=== PATIENT | female | born 1975 | race Caucasian/White ===

== ENCOUNTER → 2016-04-10 | Outpatient (CLI) | payer OTHER ==
[~2016-04-10] MED LIST: CLON0.5T3 PO; CLX20 PO; FLUT0.15 NAE; FRCT/ PO; RMR15 PO
[2016-04-10 17:30] LABS: THYROID STIMULATING HORMONE 2.49 uIu/ml (0.300-4.500)
== END | disposition home or self-care (01) ==
LOC: C.LABBC 12:12
PROVIDERS: ATTEND Family Medicine
DX: R53.83 Other fatigue (principal)

== ENCOUNTER → 2016-04-26 | Outpatient (CLI) | payer OTHER ==
[2016-04-26 17:24] LABS: THYROID STIMULATING HORMONE 1.5 uIu/ml (0.300-4.500)
[2016-04-26 17:25] LABS: TESTOSTERONE,TOTAL 18.3 ng/dl
[2016-04-26 17:26] LABS: PROLACTIN 6.13 ng/mL
[2016-05-02 15:17] LABS: PREGNENELONE **TC 31493X 9 ng/dL; SEX HORMONE BINDING GLOB 228 NMOL/L (17-124); THYROGLOBULIN 14.6 NG/ML (2.8-40.9)
== END | disposition home or self-care (01) ==
LOC: C.LABBC 12:38
PROVIDERS: ATTEND Family Medicine
DX: E28.9 Ovarian dysfunction, unspecified (principal)

== ENCOUNTER → 2016-07-12 | Outpatient (CLI) | payer OTHER ==
--- NOTE | 2016-07-12 12:53 | DIAGNOSTIC IMAGING REPORT ---
HAND MIN 3 VIEWS ROUTINE CLINICAL HISTORY: JUANCHO HAND ARTHRALGIC pain COMPARISON: None. DISCUSSION: Mild periarticular osteopenia. No well-defined marginal erosions. Bony mineralization throughout is somewhat diminished. There is no evidence for soft tissue swelling. IMPRESSION: Possible early rheumatoid change. Electronically signed by: Mark Real M.D. 07/12/2016 12:51 PM Dictated Date/Time: 07/12/2016 12:51 PM
--- NOTE | 2016-07-12 13:30 | DIAGNOSTIC IMAGING REPORT ---
RIGHT HAND 3 VIEWS CLINICAL HISTORY: Bilateral hand arthralgias. FINDINGS: 3 views of the left hand are obtained. No prior studies are available for comparison at the time of dictation. The skeletal structures are well mineralized. Apparent osteopenia is likely on a technical basis. No fracture is seen. The joint spaces of the hand are well-maintained. No erosive disease is identified. The overlying soft tissues are within normal limits. IMPRESSION: Unremarkable radiographic assessment of the left hand. Electronically signed by: John Francis M.D. 07/12/2016 1:28 PM Dictated Date/Time: 07/12/2016 1:27 PM
== END | disposition home or self-care (01) ==
LOC: C.RADBC 12:28
PROVIDERS: ATTEND Physician Assistant
DX: R89.4 Abnormal immunological findings in specimens from other organs, systems and tissues (principal); M25.50 Pain in unspecified joint

== ENCOUNTER → 2016-07-26 | Outpatient (CLI) | payer OTHER | END | disposition home or self-care (01) | LOC: C.LABBC 14:51 | PROVIDERS: ATTEND Physician Assistant | DX: R89.4 Abnormal immunological findings in specimens from other organs, systems and tissues (principal); M25.50 Pain in unspecified joint ==

== ENCOUNTER → 2016-08-25 | Outpatient (CLI) | payer OTHER ==
[2016-08-25 14:43] LABS: URINE APPEARANCE CLEAR (CLEAR); URINE BILIRUBIN NEG (NEG); URINE COLOR YELLOW; URINE NITRITE NEG (NEG); UROBILINOGEN NEG (NEG)
[2016-08-25 14:49] LABS: MANUAL MICROSCOPIC REQUIRED? NO; REVIEW REQ? NO
== END | disposition home or self-care (01) ==
LOC: C.LAB 12:17
PROVIDERS: ATTEND Family Medicine
DX: R30.0 Dysuria (principal)

== ENCOUNTER → 2016-08-31 | Outpatient (CLI) | payer OTHER ==
--- NOTE | 2016-08-31 15:33 | DIAGNOSTIC IMAGING REPORT ---
RENAL ULTRASOUND CLINICAL HISTORY: Flank and back pain. COMPARISON STUDY: CT of the abdomen and pelvis April 25, 2010. TECHNIQUE: Sonography of the kidneys and the urinary bladder was performed. FINDINGS: The right kidney measures 10.3 x 3.1 x 4.1 cm and the left measures 10.4 x 4.1 x 4.7 cm. There is no hydronephrosis. A 6 mm echogenic cortical lesion within the lower pole of the right kidney favors an angiomyolipoma. Renal echogenicity, size and cortical thickness are normal. Both ureteral jets were identified. IMPRESSION: 1. No hydronephrosis. 2. 6 mm echogenic right renal lesion. While indeterminate, the appearance favors an angiomyolipoma. Otherwise, normal sonographic appearance of the kidneys. Electronically signed by: Job Hughes M.D. 08/31/2016 3:32 PM Dictated Date/Time: 08/31/2016 3:30 PM
--- NOTE | 2016-08-31 15:34 | DIAGNOSTIC IMAGING REPORT ---
PELVIC COMPLETE NON OB CLINICAL HISTORY: LOWER ABD Pain, back Pain, kidney AREA PAIN COMPARISON STUDY: None FINDINGS: The uterus measured 7.4 cm.. The endometrial stripe measured 1.4 cm. The right ovary measured 3.1 cm. The left ovary measured 2.8 cm. There is no ultrasonographic evidence of ovarian torsion. It should be noted that ovarian torsion can be present with normal Doppler ultrasonographic findings. There was no evidence of pathologic free pelvic fluid. IMPRESSION: Moderate endometrial prominence at 1.4 cm, possibly secondary to the secretory phase. Endometrial hyperplasia is also considered. Otherwise normal exam The above report was generated using voice recognition software. It may contain grammatical, syntax or spelling errors. Electronically signed by: Mark Real M.D. 08/31/2016 3:33 PM Dictated Date/Time: 08/31/2016 3:31 PM
== END | disposition home or self-care (01) ==
LOC: C.ULTR 13:23
PROVIDERS: ATTEND Family Medicine
DX: R10.30 Lower abdominal pain, unspecified (principal); M54.9 Dorsalgia, unspecified; N28.89 Other specified disorders of kidney and ureter

== ENCOUNTER → 2016-09-13 | Outpatient (CLI) | payer OTHER ==
[2016-09-13 16:44] LABS: URINE APPEARANCE CLEAR (CLEAR); URINE BILIRUBIN NEG (NEG); URINE COLOR YELLOW; URINE EPITHELIAL CELL AUTO 20-30 /lpf (0-5); URINE NITRITE NEG (NEG); URINE SPECIFIC GRAVITY 1.017 (1.000-1.030); UROBILINOGEN NEG (NEG)
[2016-09-13 16:45] LABS: MANUAL MICROSCOPIC REQUIRED? NO; REVIEW REQ? NO
== END | disposition home or self-care (01) ==
LOC: C.LABSPEC 16:19
PROVIDERS: ATTEND Physician Assistant
DX: R39.9 Unspecified symptoms and signs involving the genitourinary system (principal); L29.8 Other pruritus

== ENCOUNTER → 2016-09-25 | Outpatient (CLI) | payer OTHER ==
[2016-09-25 16:42] LABS: BASO % 0.5 %; BASO ABS # 0.03 K/uL (0-0.2); COMPLETE YES; HEMATOCRIT 38.4 % (37-47); LYMPH % 31.3 %; LYMPH ABS # 1.92 K/uL (1.2-3.4); MEAN CELL VOLUME 99.2 fL (80-100); MEAN CORPUSCULAR HEMOGLOBIN 33.6 pg (25-34); MEAN CORPUSCULAR HGB CONC 33.9 g/dl (32-36); MEAN PLATELET VOLUME 11.5 fL (7.4-10.4); MONO % 5.9 %; NEUT % 60.3 %; PLATELET COUNT 198 K/uL (130-400); RED BLOOD COUNT 3.87 M/uL (4.2-5.4); WHITE BLOOD COUNT 6.13 K/uL (4.8-10.8)
[2016-09-25 16:54] LABS: ALT/SGPT 33 U/L (12-78); AST/SGOT 20 U/L (15-37); BLOOD UREA NITROGEN 8 mg/dl (7-18); BUN/CREATININE RATIO 10.2 (10-20); CALCIUM 8.8 mg/dl (8.5-10.1); CARBON DIOXIDE 26 mmol/L (21-32); CHLORIDE 106 mmol/L (98-107); CREATININE 0.75 mg/dl (0.60-1.20); GLUCOSE 92 mg/dl (70-99); POTASSIUM 3.9 mmol/L (3.5-5.1); SODIUM 140 mmol/L (136-145)
[2016-09-25 17:00] LABS: ALB/GLOB RATIO 1.3 (0.9-2); ALKALINE PHOSPHATASE 97 U/L (45-117); TOTAL IRON BINDING CAPACITY 357 mcg/dl (250-450)
== END | disposition home or self-care (01) ==
LOC: C.LAB1850 15:21
PROVIDERS: ATTEND Family Medicine
DX: M25.50 Pain in unspecified joint (principal); D51.9 Vitamin B12 deficiency anemia, unspecified

== ENCOUNTER → 2016-09-25 | Outpatient (CLI) | payer OTHER | END | disposition home or self-care (01) | LOC: C.PAPS 08:11 | PROVIDERS: ATTEND Obstetrics & Gynecology | DX: Z12.4 Encounter for screening for malignant neoplasm of cervix (principal) ==

== ENCOUNTER → 2016-10-16 | Outpatient (CLI) | payer OTHER | END | disposition home or self-care (01) | LOC: C.MAMM 13:27 | PROVIDERS: ATTEND Family Medicine | DX: M85.80 Other specified disorders of bone density and structure, unspecified site (principal) ==

== ENCOUNTER → 2016-10-17 | Outpatient (CLI) | payer OTHER ==
[2016-10-18 12:52] LABS: URINE APPEARANCE CLEAR (CLEAR); URINE BILIRUBIN NEG (NEG); URINE COLOR YELLOW; URINE NITRITE NEG (NEG); URINE PH 6.5 (4.5-7.5); URINE SPECIFIC GRAVITY 1.008 (1.000-1.030); UROBILINOGEN NEG (NEG)
[2016-10-18 12:59] LABS: MANUAL MICROSCOPIC REQUIRED? NO; REVIEW REQ? NO
== END | disposition home or self-care (01) ==
LOC: C.LABSPEC 11:17
PROVIDERS: ATTEND Family Medicine
DX: N39.0 Urinary tract infection, site not specified (principal)

== ENCOUNTER → 2017-05-14 | Outpatient (CLI) | payer OTHER ==
--- NOTE | 2017-05-14 12:57 | DIAGNOSTIC IMAGING REPORT ---
R WRIST MIN 3 VIEWS ROUTINE CLINICAL HISTORY: ARTHRITIS COMPARISON: Right hand radiographs July 12, 2016. FINDINGS: Alignment of the right wrist is anatomic. Joint spaces are preserved. There are no erosions. No fracture or suspicious lesion is identified. IMPRESSION: Unremarkable right wrist radiographs. Electronically signed by: Job Hughes M.D. 05/14/2017 12:56 PM Dictated Date/Time: 05/14/2017 12:55 PM
--- NOTE | 2017-05-14 12:58 | DIAGNOSTIC IMAGING REPORT ---
L WRIST MIN 3 VIEWS ROUTINE CLINICAL HISTORY: Arthritis. COMPARISON: Left hand radiographs July 12, 2016. FINDINGS: Alignment of the left wrist is anatomic. Joint spaces are preserved. No fracture or erosion is identified. IMPRESSION: Unremarkable left wrist radiographs. Electronically signed by: Job Hughes M.D. 05/14/2017 12:57 PM Dictated Date/Time: 05/14/2017 12:56 PM
--- NOTE | 2017-05-14 12:59 | DIAGNOSTIC IMAGING REPORT ---
RIGHT ANKLE 3 VIEWS CLINICAL HISTORY: Arthritis. FINDINGS: 3 views of the right ankle are obtained. No prior studies are available for comparison at the time of dictation. The skeletal structures are well mineralized. No fracture is seen. The ankle mortise is intact. No bony erosion is identified. There is no joint effusion. The overlying soft tissues are within normal limits. IMPRESSION: Unremarkable radiographic examination of the right ankle. Electronically signed by: John Francis M.D. 05/14/2017 12:57 PM Dictated Date/Time: 05/14/2017 12:57 PM
--- NOTE | 2017-05-14 12:59 | DIAGNOSTIC IMAGING REPORT ---
L ANKLE MIN 3 VIEWS ROUTINE CLINICAL HISTORY: ARTHRITIS COMPARISON: None FINDINGS: Alignment of the left ankle is anatomic. No fracture or suspicious lesion is identified. No erosions are identified. There may be an os trigonum. IMPRESSION: Unremarkable left ankle radiographs. Electronically signed by: Job Hughes M.D. 05/14/2017 12:57 PM Dictated Date/Time: 05/14/2017 12:57 PM
--- NOTE | 2017-05-14 13:01 | DIAGNOSTIC IMAGING REPORT ---
RIGHT HAND 3 VIEWS CLINICAL HISTORY: Arthritis. FINDINGS: 3 views of the right hand are compared to study dated 07/12/2016. Mild periarticular osteopenia is suggested. No fracture is seen. The joint spaces of the hand are well-maintained. No bony erosion is identified. The overlying soft tissues are within normal limits. IMPRESSION: No acute bony abnormality is identified and there has been no significant change from 07/12/2016. Electronically signed by: John Francis M.D. 05/14/2017 12:59 PM Dictated Date/Time: 05/14/2017 12:58 PM
--- NOTE | 2017-05-14 13:02 | DIAGNOSTIC IMAGING REPORT ---
R FOOT MIN 3 VIEWS ROUTINE CLINICAL HISTORY: ARTHRITIS COMPARISON: None FINDINGS: Alignment of the right foot is anatomic. There is no fracture or suspicious lesion. No erosions are identified. Joint spaces are preserved. IMPRESSION: Unremarkable right foot radiographs. Electronically signed by: Job Hughes M.D. 05/14/2017 1:01 PM Dictated Date/Time: 05/14/2017 1:00 PM
--- NOTE | 2017-05-14 13:03 | DIAGNOSTIC IMAGING REPORT ---
L FOOT MIN 3 VIEWS ROUTINE CLINICAL HISTORY: ARTHRITIS COMPARISON: None FINDINGS: Alignment of the left foot is anatomic. There is no fracture or suspicious lesion. Joint spaces are preserved. No erosions are identified. IMPRESSION: Unremarkable left foot radiographs. Electronically signed by: Job Hughes M.D. 05/14/2017 1:02 PM Dictated Date/Time: 05/14/2017 1:01 PM
--- NOTE | 2017-05-14 13:12 | DIAGNOSTIC IMAGING REPORT ---
L HAND MIN 3 VIEWS ROUTINE CLINICAL HISTORY: 41 years-old Female presenting with ARTHRITIS. TECHNIQUE: Frontal, oblique, lateral views of the left hand were obtained. COMPARISON: 07/12/2016. FINDINGS: Bone island suggested in the head of the fifth metacarpal. No acute fracture or malalignment. No advanced degenerative change. No radiographic soft tissue abnormality. IMPRESSION: 1. No acute osseous injury. 2. No advanced degenerative change. Electronically signed by: Johnathan Mota M.D. 05/14/2017 1:10 PM Dictated Date/Time: 05/14/2017 1:09 PM
[2017-05-14 13:47] LABS: BASO % 0.4 %; BASO ABS # 0.02 K/uL (0-0.2); EOS % 5.2 %; EOS ABS # 0.28 K/uL (0-0.5); HEMATOCRIT 39.3 % (37-47); HEMOGLOBIN 13.8 g/dL (12.0-16.0); IG# 0.01 K/uL (0.00-0.02); LYMPH % 32.9 %; LYMPH ABS # 1.76 K/uL (1.2-3.4); MEAN CORPUSCULAR HEMOGLOBIN 34.4 pg (25-34); MEAN CORPUSCULAR HGB CONC 35.1 g/dl (32-36); MEAN PLATELET VOLUME 11.7 fL (7.4-10.4); MONO % 5.6 %; NEUT % 55.7 %; NEUT ABS # 2.98 K/uL (1.4-6.5); PLATELET COUNT 185 K/uL (130-400); RED CELL DISTRIBUTION WIDTH CV 11.7 % (11.5-14.5); WHITE BLOOD COUNT 5.35 K/uL (4.8-10.8)
[2017-05-14 14:21] LABS: ALT/SGPT 29 U/L (12-78); BLOOD UREA NITROGEN 9 mg/dl (7-18); CARBON DIOXIDE 26 mmol/L (21-32); CREATININE 0.77 mg/dl (0.60-1.20); GLUCOSE 91 mg/dl (70-99); POTASSIUM 3.4 mmol/L (3.5-5.1); SODIUM 137 mmol/L (136-145)
[2017-05-14 14:24] LABS: ALKALINE PHOSPHATASE 98 U/L (45-117); AST/SGOT 20 U/L (15-37); TOTAL PROTEIN 7.4 gm/dl (6.4-8.2)
== END | disposition home or self-care (01) ==
LOC: C.RADBC 12:06
PROVIDERS: ATTEND Family Medicine
DX: R53.83 Other fatigue (principal); M19.041 Primary osteoarthritis, right hand; M19.042 Primary osteoarthritis, left hand; M19.071 Primary osteoarthritis, right ankle and foot; M19.072 Primary osteoarthritis, left ankle and foot; M19.031 Primary osteoarthritis, right wrist; M19.032 Primary osteoarthritis, left wrist

== ENCOUNTER → 2017-06-29 | Outpatient (CLI) | payer OTHER ==
[~2017-06-29] MED LIST changes: +ACET-1693 PO; +CHOL2000 PO; +CITA10TA4 PO; -CLON0.5T3 PO; -CLX20 PO; +CYNI1000 IM; -FLUT0.15 NAE; +KLN5X PO; +MIRT15TA3 PO; -RMR15 PO; +TAPE50TA PO
[2017-06-29 12:32] LABS: BASO % 0.4 %; BASO ABS # 0.02 K/uL (0-0.2); EOS % 9.6 %; HEMATOCRIT 38.4 % (37-47); HEMOGLOBIN 13.1 g/dL (12.0-16.0); IG# 0.01 K/uL (0.00-0.02); LYMPH % 30.7 %; MEAN CELL VOLUME 99.7 fL (80-100); MEAN CORPUSCULAR HGB CONC 34.1 g/dl (32-36); MEAN PLATELET VOLUME 11.3 fL (7.4-10.4); MONO % 4.6 %; MONO ABS # 0.24 K/uL (0.11-0.59); NEUT % 54.5 %; NEUT ABS # 2.84 K/uL (1.4-6.5); PLATELET COUNT 184 K/uL (130-400); RED CELL DISTRIBUTION WIDTH CV 11.8 % (11.5-14.5); RED CELL DISTRIBUTION WIDTH SD 43.1 fL (36.4-46.3); WHITE BLOOD COUNT 5.21 K/uL (4.8-10.8)
[2017-06-29 13:38] LABS: ALBUMIN 3.8 gm/dl (3.4-5.0); ALT/SGPT 41 U/L (12-78); AST/SGOT 29 U/L (15-37); BLOOD UREA NITROGEN 8 mg/dl (7-18); CARBON DIOXIDE 27 mmol/L (21-32); CREATININE 0.76 mg/dl (0.60-1.20); GLUCOSE 87 mg/dl (70-99); POTASSIUM 3.5 mmol/L (3.5-5.1); SODIUM 139 mmol/L (136-145)
[2017-06-29 13:47] LABS: ALKALINE PHOSPHATASE 113 U/L (45-117); PHOSPHORUS 2.6 mg/dl (2.5-4.9); TOTAL PROTEIN 7.2 gm/dl (6.4-8.2)
== END | disposition home or self-care (01) ==
LOC: C.LAB 11:22
PROVIDERS: ATTEND Family Medicine
DX: R53.83 Other fatigue (principal)

== ENCOUNTER → 2017-09-11 | Outpatient (CLI) | payer OTHER ==
[2017-09-11 17:37] LABS: ALKALINE PHOSPHATASE 96 U/L (45-117); ALT/SGPT 29 U/L (12-78); AST/SGOT 20 U/L (15-37); BLOOD UREA NITROGEN 9 mg/dl (7-18); CALCIUM 8.5 mg/dl (8.5-10.1); CARBON DIOXIDE 25 mmol/L (21-32); CREATININE 0.89 mg/dl (0.60-1.20); GLUCOSE 83 mg/dl (70-99); POTASSIUM 3.7 mmol/L (3.5-5.1); SODIUM 139 mmol/L (136-145); TOTAL PROTEIN 7.1 gm/dl (6.4-8.2)
== END | disposition home or self-care (01) ==
LOC: C.LABBC 13:29
PROVIDERS: ATTEND Neuromusculoskeletal Medicine & OMM
DX: N39.0 Urinary tract infection, site not specified (principal); R39.15 Urgency of urination; R31.29 Other microscopic hematuria

== ENCOUNTER → 2017-09-21 | Outpatient (CLI) | payer OTHER ==
[~2017-09-21] MED LIST changes: +OPTIRAY 320 IV PRN
--- NOTE | 2017-09-21 14:22 | DIAGNOSTIC IMAGING REPORT ---
ABDOMEN AND PELVIS CT WITH AND WITHOUT IV CONTRAST, UROGRAM PROTOCOL CT DOSE: 556.82 mGycm HISTORY: N39.0 UTI (urinary tract infection)R39.15 Urinary [id number] TECHNIQUE: Multiaxial CT images of the abdomen and pelvis were performed both before and after the use of intravenous contrast to evaluate the urinary system. Maximal intensity projection images were performed at the workstation by the radiologist. A dose lowering technique was utilized adhering to the principles of ALARA. COMPARISON STUDY: Abdomen and pelvis CT 04/25/2010. FINDINGS: No renal or ureteral calculi. No hydronephrosis. No suspicious filling defects seen within the opacified the bilateral renal collecting systems, ureters, or bladder. Of note, the distal ureters are partially opacified. The lung bases are clear. The liver, spleen, gallbladder, pancreas, kidneys, and adrenal glands are within normal limits. No bowel wall thickening or obstruction. The pelvic organs are unremarkable. No suspicious lytic or blastic osseous lesions. Tiny fat-containing umbilical hernia. Trace pelvic free fluid. Small bilateral ovarian cysts with the largest on the right measuring 1.8 cm. These are likely physiologic. Normal appendix. IMPRESSION: 1. No renal or ureteral stones. No hydronephrosis. 2. No suspicious filling defects seen within the opacified bilateral renal collecting systems, ureters, or bladder. 2. Trace pelvic free fluid which is likely physiologic. Electronically signed by: Shukri Marin M.D. 09/21/2017 2:21 PM Dictated Date/Time: 09/21/2017 1:54 PM
== END | disposition home or self-care (01) ==
LOC: C.CTS 13:24
PROVIDERS: ATTEND Urology
DX: N39.0 Urinary tract infection, site not specified (principal); R31.29 Other microscopic hematuria; R39.15 Urgency of urination